=== PATIENT | female | born 1950 | race Hispanic/Latino ===

== ENCOUNTER 2022-02-23 08:48 | Day surgery (SDC) | payer OTHER, MEDICARE ==
[2022-02-17 12:54] LABS: BASOPHILS % (AUTO) 1.8 % (0.0-5.0); EOSINOPHILS % (AUTO) 2.4 % (0.0-8.0); HEMATOCRIT 37.9 % (36-48); LYMPHOCYTES % (AUTO) 27.7 % (21.0-51.0); MEAN CORPUSCULAR HEMOGLOBIN 30.3 pg (27.0-33.0); MEAN CORPUSCULAR HGB CONC 31.1 g/dL (32.0-36.0); MEAN CORPUSCULAR VOLUME 97.2 fL (79-99); MONOCYTES % (AUTO) 10.8 % (3.0-13.0); NEUTROPHILS % (AUTO) 56.9 % (40.0-77.0); PLATELET COUNT (AUTO) 178 K/uL (130-400); RED CELL DISTRIBUTION WIDTH 12.3 % (11.0-15.5)
[2022-02-17 13:00] LABS: APPEARANCE,URINE Clear (CLEAR); BILIRUBIN,URINE Negative (NEGATIVE); COLOR,URINE Yellow (YELLOW); GLUCOSE, URINE (UA) Negative (NEGATIVE); KETONES,URINE Negative (NEGATIVE); LEUKOCYTE ESTERASE ,URINE Negative (NEGATIVE); NITRATE,URINE Negative (NEGATIVE); OCCULT BLOOD,URINE Negative (NEGATIVE); PH,URINE 5.5 (5.0-8.0); PROTEIN,URINE Negative (NEGATIVE); UROBILINOGEN,URINE 0.2 mg/dL (0.2-1.0)
[2022-02-17 13:05] LABS: CREATININE 0.8 mg/dL (0.5-1.5); POTASSIUM 4.4 mmol/L (3.5-5.1)
[2022-02-17 13:06] LABS: INR 1.02 (0.85-1.15); PROTHROMBIN TIME 11.1 SEC (9.6-11.6)
[2022-02-17 13:07] LABS: PARTIAL THROMBOPLASTIN TIME 25.9 SEC (26.3-35.5)
[2022-02-22 15:37] VITALS: BP 133/67
[2022-02-23] VITALS (17 sets, daily range): BP systolic 117–132; BP diastolic 50–63
[~2022-02-23] VITALS: Ht 162.6 cm; Wt 71.9 kg
[~2022-02-23 08:48] MED LIST: CALC-1125 PO; CEFAZOLIN SODIUM 1 GM VIAL IVP SCH; CYAN500T9 PO; GENTAMICIN 80 MG/NS 100 ML PB 100 ML IV SCH; HYDR200T4 PO; NAPR-1023 PO; OLME40TA18 PO; PILO5POW2 MC; POTA99TA26 PO
[2022-02-23] MEDS ORDERED: LACTATED RINGERS 1000ML 1,000 ML IV ONE (09:06)
[2022-02-23] MEDS ORDERED: LIDOCAINE PF 100MG/5ML (2%) SYRINGE 5ML ONE (12:12)
[2022-02-23] MEDS ORDERED: PROPOFOL 10 MG/ML 20ML VIAL IV ONE (12:13)
[2022-02-23] MEDS ORDERED: FENTANYL CITRATE PF 50 MCG/1 ML 2ML VIAL ONE (12:27)
[2022-02-23] MEDS ORDERED: CEFAZOLIN SODIUM 1 GM VIAL ONE (12:34)
[2022-02-23] MEDS ORDERED: LIDOCAINE 1%-EPI 1:100,000 20 ML VIAL IJ ONE (12:34)
[2022-02-23] MEDS ORDERED: EPHEDRINE SULFATE 50 MG/ML AMPULE ONE (12:45)
[2022-02-23] MEDS ORDERED: ALBUMIN (HUMAN) 5% 250 ML IV ONE (13:00)
[2022-02-23] MEDS ORDERED: ESTROGENS,CONJUGATED 0.625 MG/GM 42.5 GM VAG CRM VG ONE (13:07)
[2022-02-23] MEDS ORDERED: ONDANSETRON 4MG INJ ONE (13:12)
[2022-02-23 13:41] LABS: HEMATOCRIT 30.3 % (36-48); MEAN CORPUSCULAR HGB CONC 31.7 g/dL (32.0-36.0); MEAN CORPUSCULAR VOLUME 97.7 fL (79-99); RED BLOOD CELL COUNT(AUTO) 3.1 MIL/uL (4.00-5.50); RED CELL DISTRIBUTION WIDTH 12.5 % (11.0-15.5)
== END 2022-02-23 15:10 | disposition home or self-care (01) ==
LOC: DAH 08:48
PROVIDERS: ATTEND Urology
DX: N39.46 Mixed incontinence (principal); I10 Essential (primary) hypertension; M06.9 Rheumatoid arthritis, unspecified; Z98.890 Other specified postprocedural states; Z90.710 Acquired absence of both cervix and uterus; Z79.01 Long term (current) use of anticoagulants; Z79.899 Other long term (current) drug therapy
CPT/HCPCS: 36415 ×2; 57288; 71045; 80048; 81003; 85025; 85027; 85610; 85730; 87088; 87635; 93005; A4215 ×2; A4221; A4222; A4223; A4344; A4600; A4663; A4930; A5113; A6260; C1771; C9803; J0690 ×2; J1580; J2001; J2405; J2704; J3010; J3490 ×2; J7030; J7120; P9045